=== PATIENT | male | born 1950 | race Caucasian/White ===

== ENCOUNTER 2016-12-13 07:16 | Outpatient (CLI) | payer MEDICARE, OTHER ==
[2016-12-13 12:03] LABS: ALBUMIN/GLOBULIN RATIO 1.4 (1.0-2.2); BILIRUBIN,TOTAL 0.8 mg/dL (0.2-1.0); CALCIUM 9.2 mg/dL (8.5-10.3); CREATININE 0.9 mg/dL (0.6-1.2); POTASSIUM 4.2 mmol/L (3.5-5.0)
== END 2016-12-13 07:17 | disposition home or self-care (01) ==
LOC: LAB.F 07:16
PROVIDERS: ATTEND Physician Assistant
DX: I10 Essential (primary) hypertension (principal)
CPT/HCPCS: 36415; 80053

== ENCOUNTER 2020-10-16 08:38 | Outpatient (CLI) | payer MEDICARE ==
--- NOTE | 2020-10-16 09:48 | Ultrasound Report ---
PROCEDURE: Aorta Screening INDICATIONS: EX SMOKER TECHNIQUE: Real time scanning was performed of the aorta and iliac arteries, with image documentatio n. COMPARISON: None FINDINGS: Aorta: Proximal aortic diameter measures 2.7 x 2.9 cm. Mid-aorta measures 2.3 x 2.3 cm. Distal aor tic diameter is 2.5 x 2.5 cm. Atherosclerotic irregularity is seen, formerly involving the distal ao rta. Iliac arteries: Right common iliac artery measures 1.6 x 1.5 cm. Left common iliac artery measures 1.5 x 1.4 cm. IMPRESSION: Negative for aneurysm. Reviewed by: Chiki Haile MD on 10/16/2020 8:47 AM [facility] Approved by: Chiki Haile MD on 10/16/2020 8:47 AM [facility] Station ID: [id number]
== END 2020-10-16 08:39 | disposition home or self-care (01) ==
LOC: DI 08:38
PROVIDERS: ATTEND Family Medicine
DX: Z13.6 Encounter for screening for cardiovascular disorders (principal); Z87.891 Personal history of nicotine dependence

== ENCOUNTER 2022-12-07 11:50 | Outpatient (CLI) | payer MEDICARE ==
--- NOTE | 2022-12-08 10:38 | CT Report ---
PROCEDURE: Low Dose Lung Cancer Screen INDICATIONS: LUNG CANCER SCREENING TECHNIQUE: Noncontrast low-dose axial images were acquired from the pulmonary apices to the posterior costophren ic angles. Multiplanar MIP reformats were then reconstructed. For radiation dose reduction, the follo wing was used: automated exposure control, adjustment of mA and/or kV according to patient size. COMPARISON: None. FINDINGS: Image quality: Excellent. Lungs and pleura: There is a 3 mm endobronchial nodule in the left upper lobe (series 4 image 145). In addition, there is a 2 mm peripheral nodule in the left upper lobe (series 4 image 44). Moderate emphysema. No pleural effusions. No pneumothorax. Mediastinum: Heart size is normal. No pericardial effusions. No mediastinal adenopathy by size criter ia. No large vessel abnormality. Chest wall and lower neck: Thyroid is unremarkable. No axillary or supraclavicular adenopathy by size . Bones: No aggressive osseous abnormality. Upper Abdomen: Unremarkable. IMPRESSION: Lung RADS: 3 - Probably Benign. Recommendation: Continue screening in 6 Months with LDCT Reviewed by: Rosa Dhaliwal MD on 12/08/2022 10:36 AM PDT Approved by: Rosa Dhaliwal MD on 12/08/2022 10:36 AM PDT Station ID: [id number]
== END 2022-12-07 11:51 | disposition home or self-care (01) ==
LOC: DI 11:50
PROVIDERS: ATTEND Family Medicine
DX: Z12.2 Encounter for screening for malignant neoplasm of respiratory organs (principal); Z87.891 Personal history of nicotine dependence

== ENCOUNTER 2023-09-05 13:25 | Outpatient (CLI) | payer MEDICARE ==
[2023-09-05] MEDS: ALBUTEROL 1 PUFF INH STA (16:45)
== END 2023-09-05 13:26 | disposition home or self-care (01) ==
LOC: RT 13:25
PROVIDERS: ATTEND Registered Nurse
DX: R06.00 Dyspnea, unspecified (principal)
CPT/HCPCS: 94060; 94729

== ENCOUNTER 2023-09-05 14:47 | Outpatient (CLI) | payer MEDICARE ==
--- NOTE | 2023-09-05 15:38 | XRAY Report ---
PROCEDURE: Chest 2V INDICATIONS: DYSPNEA TECHNIQUE: 2 views of the chest were acquired. COMPARISON: CT chest 12/07/2022, 10/29/1948 FINDINGS: Surgical changes and devices: None. Lungs and pleura: No pleural effusions or pneumothorax. Lungs are clear. Mediastinum: Mediastinal contours appear normal. Heart size is normal. Bones and chest wall: No suspicious bony lesions. Overlying soft tissues appear unremarkable. IMPRESSION: No acute cardiopulmonary process. Reviewed by: Carlotta Parker MD on 09/05/2023 3:37 PM PST Approved by: Carlotta Parker MD on 09/05/2023 3:37 PM [facility] Station ID: [id number]
== END 2023-09-05 14:48 | disposition home or self-care (01) ==
LOC: DI 14:47
PROVIDERS: ATTEND Registered Nurse
DX: R06.00 Dyspnea, unspecified (principal)

== ENCOUNTER 2023-10-04 14:32 | Outpatient (CLI) | payer MEDICARE ==
--- NOTE | 2023-10-05 22:06 | CT Report ---
PROCEDURE: Chest WO INDICATIONS: MULTIPLE LUNG NODULES TECHNIQUE: A CT scan of the chest was performed. Intravenous contrast media was not administered. Images were re corded and evaluated at appropriate window settings. Reformats: axial MIP of the chest, coronal and s agittal. For radiation dose reduction, the following was used: automated exposure control, adjustment of mA and/or kV according to patient size. COMPARISON: CT lung cancer screening 12/07/2022.. FINDINGS: Image quality: Diagnostic. Respiratory motion. Chest wall and lower neck: No thyroid nodule which requires sonographic follow up. No axillary or sup raclavicular adenopathy by size. Lungs and pleura: No consolidation. No pleural effusions. No pneumothorax. Moderate emphysematous chip nge. Punctate pulmonary nodule in the left upper lobe is unchanged. The previously seen left upper lo be endobronchial pulmonary nodule is not identified. This could represent a mucous plug. A few areas of distal mucus airway plugging, for example in the right lower lobe. Central airways are clear. Mediastinum: Heart size is normal. No pericardial effusion. No large vessel abnormality. No mediastin al adenopathy by size criteria. Bones: No aggressive osseous abnormality. Upper Abdomen: Hypodensity in the left lobe liver. Appears similar. Likely a benign cyst. Probable cy st in the right lobe of liver. Multiple low-density renal cysts. No adrenal nodule. IMPRESSION: 1. No significant pulmonary nodules demonstrated. 2. Punctate pulmonary nodule in the left upper lobe is unchanged. Left upper lobe endobronchial nodul e is no longer present. This most likely represented a mucous plug. Recommend follow-up lung cancer screening chest CT in 12 months. Reviewed by: Laith Fuchs MD on 10/05/2023 10:05 PM PDT Approved by: Laith Fuchs MD on 10/05/2023 10:05 PM PDT Station ID: [id number]
== END 2023-10-04 14:33 | disposition home or self-care (01) ==
LOC: DI 14:32
PROVIDERS: ATTEND Registered Nurse
DX: R91.1 Solitary pulmonary nodule (principal)

== ENCOUNTER 2023-12-06 13:19 | Outpatient (CLI) | payer MEDICARE ==
--- NOTE | 2023-12-06 23:18 | Ultrasound Report ---
PROCEDURE: Renal (Retroperitoneal) INDICATIONS: RENAL CYSTS TECHNIQUE: Real-time scanning was performed of the retroperitoneal organs, with image documentation. COMPARISON: Chest CT dated 10/04/2023. FINDINGS: Kidneys: Kidneys are normal in size. Right kidney measures 12.6 cm long; left kidney measures 12.8 cm long. Right renal cortical thickness is 1.2 cm; left renal cortical thickness is 1.5 cm. No johan d masses, hydronephrosis, or nephrolithiasis. There is a 3.0 x 2.2 x 2.3 cm cyst in the inferior urban e of the right kidney. This cyst is difficult to visualize. A definite comparison cyst cannot be eval uated at the previous chest CT did not extend to the inferior pole of the right kidney. There are 2 s imple cysts noted in the left kidney one superiorly measures 4.3 x 3.2 x 4.3 cm and inferiorly measur ing 3.7 x 2.8 x 4.7 cm. Bladder: Pre-void bladder volume is 158 mL. Post-void residual is 82.4 mL. Pre-void images demonst rate no intraluminal masses or stones. On pre-void images, bilateral ureteral jets are noted with co armando Doppler interrogation. (Of note, ureteral jets may not be detectable in up to 25% of cases due t o insufficient differences in specific gravity between ureteral and bladder urine). Miscellaneous: No free abdominal fluid. IMPRESSION: Bilateral renal cysts which appear simple in the left kidney but not well visualized on the right. Re commend follow-up renal ultrasound versus further characterization with contrast-enhanced CT or MRI o f the abdomen using renal mass protocol. Reviewed by: Ervin Oneal MD on 12/06/2023 11:17 PM PDT Approved by: Ervin Oneal MD on 12/06/2023 11:17 PM PDT Station ID: [id number]
== END 2023-12-06 13:20 | disposition home or self-care (01) ==
LOC: DI 13:19
PROVIDERS: ATTEND Registered Nurse
DX: N28.1 Cyst of kidney, acquired (principal)

== ENCOUNTER 2024-02-01 07:43 | Outpatient (CLI) | payer MEDICARE ==
[2024-02-01 08:08] LABS: CREATININE 0.8 mg/dL (0.6-1.3)
[2024-02-01] MEDS ORDERED: iohexoL-300 150 ML BOTTLE ONE (09:04)
[2024-02-01] MEDS: iohexoL-300 100 ML VIAL IVP ONE (10:28)
--- NOTE | 2024-02-01 12:51 | CT Report ---
PROCEDURE: Abdomen W/WO INDICATIONS: RENAL CYST CONTRAST: 140ml omni 300 TECHNIQUE: After the administration of intravenous contrast, 5 mm thick sections acquired from the diaphragm to the symphysis. 5 mm coronal and sagittal reformats were acquired. For radiation dose reduction, the following was used: automated exposure control, adjustment of mA and/or kV according to patient siz e. COMPARISON: None. FINDINGS: Image quality: Diagnostic Lower chest: Basal atelectasis. Lower chest otherwise unremarkable Liver: Scattered liver cysts. Subcentimeter lesions are too small to characterize, usually also cysts . Gallbladder and biliary system: Unremarkable, nondilated Pancreas: No ductal dilation Spleen: Nonenlarged Adrenals: No discrete nodules Kidneys: Bosniak 1 and 2 renal lesions are present. The cysts have thin septations and calcifications, for example the right upper pole and left lower po le. No complicated or solid components requiring follow-up. No calcified renal stone. No hydronephrosis Vessels and lymph nodes: The main portal vein is patent. No abdominal aortic aneurysm or pathologic l ymph nodes by size criteria Bowel and peritoneum: No bowel obstruction or pathologic ascites. There are colonic diverticula. Body wall: Unremarkable Bones: Degenerative changes, no acute or suspicious osseous finding. IMPRESSION: Bosniak 1 and 2 renal lesions are present. The cysts have thin septations and calcifications, for exa mple the right upper pole and left lower pole. No complicated or solid components requiring follow-up per proposed 2019 guidelines. Reviewed by: Joel Askew MD on 02/01/2024 12:50 PM PDT Approved by: Joel Askew MD on 02/01/2024 12:50 PM PDT Station ID: [id number]
== END 2024-02-01 07:44 | disposition home or self-care (01) ==
LOC: LAB 07:43
PROVIDERS: ATTEND Urology
DX: N28.1 Cyst of kidney, acquired (principal)
CPT/HCPCS: 36415; 82565